=== PATIENT | female | born 1950 | race Caucasian/White ===

== ENCOUNTER → 2020-08-08 | Outpatient (CLI) | payer MEDICARE, OTHER ==
--- NOTE | 2020-08-08 10:01 | RAD ---
EXAM: Right foot, 2 views. HISTORY: Fall. Pain. COMPARISON: None. FINDINGS: 2 views of the right foot are obtained. There is severe first metatarsal phalangeal joint space narrowing with subchondral sclerosis, subchondral cyst formation, marginal spurring and bony remodeling. There is a small corticated ossicle along the dorsal aspect of the anterior talus, the appearance of which favors a chronic avulsion fracture fragment. There is a minimal plantar spur. IMPRESSION: 1. Severe first metatarsophalangeal joint osteoarthritis. 2. Small ossicle along the dorsal aspect of the anterior talus, the appearance of which favors a small displaced avulsion fracture fragment. This is chronic in appearance. 3. Tiny plantar spur. Electronically signed by: Celeste Lee MD (08/08/2020 9:58 AM) [id number]
== END ==
LOC: RAD 09:10
PROVIDERS: ATTEND Physician Assistant Medical
DX: M19.071 Primary osteoarthritis, right ankle and foot (principal); M77.31 Calcaneal spur, right foot
CPT/HCPCS: 73620

== ENCOUNTER → 2020-09-19 | Outpatient (CLI) | payer MEDICARE, OTHER ==
--- NOTE | 2020-09-19 14:33 | RAD ---
XR EXAM OF ANKLE_RIGHT 3VIEWS, XR FOOT_RIGHT 2 VIEWS 09/19/2020 10:30 AM INDICATION: Right foot and ankle pain COMPARISON: None available. TECHNIQUE: 3 views of the right ankle and 2 views the right foot are provided. FINDINGS/ IMPRESSION: There is no acute fracture or dislocation. Mild joint space narrowing involving the first metatarsoph alangeal joint with subcortical sclerosis and marginal osteophytosis compatible with mild to moderate osteoarthrosis. Bone mineralization is within normal limits. Regional soft tissues are within normal limits. There is no soft tissue gas or osseous erosion. No radiopaque foreign body. There is fragmen tation of the anterior talus, likely sequela of remote trauma. Electronically signed by: Amy Bowen MD (09/19/2020 2:31 PM) [id number]
== END ==
LOC: PMG 10:14
PROVIDERS: ATTEND Physician Assistant Medical
DX: M19.071 Primary osteoarthritis, right ankle and foot (principal); M25.774 Osteophyte, right foot
CPT/HCPCS: 73610; 73620

== ENCOUNTER → 2021-07-09 | Outpatient (CLI) | payer MEDICARE, OTHER ==
--- NOTE | 2021-07-09 15:56 | RAD ---
AP and Lateral Views of the Chest 07/09/2021 3:46 PM Indication: Reason: SOB, FEVER, COUGH / Spl. Instructions: / History: Comparison: None Findings: There is no focal consolidation or infiltrate identified. Dual-lead pacemaking device from left subclavian approach. Heart size is normal. No pneumothorax or pleural effusion is seen. No acute osseous abnormalities are identified. Impression: No evidence of acute cardiopulmonary process. Electronically signed by: Jhonny Veliz MD (07/09/2021 3:54 PM) [id number]
== END ==
LOC: RAD 15:34
PROVIDERS: ATTEND Nurse Practitioner Family
DX: J22 Unspecified acute lower respiratory infection (principal); R05.9 Cough, unspecified; R50.9 Fever, unspecified; R06.02 Shortness of breath; Z95.0 Presence of cardiac pacemaker
CPT/HCPCS: 71046